=== PATIENT | female | born 1950 | race Caucasian/White ===

== ENCOUNTER → 2018-04-30 | Outpatient (CLI) | payer MEDICARE | LOC: M WUC 14:31 | DX: M25.721 Osteophyte, right elbow (principal); M25.521 Pain in right elbow | CPT/HCPCS: 73080 ==

== ENCOUNTER 2018-08-12 18:49 | Inpatient (IN) | payer MEDICARE ==
[~2018-08-12] VITALS: Ht 165.1 cm; Wt 81.0 kg
[2018-08-12] MEDS ORDERED: BENA20TA8 PO (19:05)
[2018-08-12] MEDS ORDERED: HYDR25TAB PO (19:05)
[2018-08-12] MEDS ORDERED: AMLO5TAB6 PO (19:05)
[2018-08-12] MEDS ORDERED: PSEU30TA21 PO (19:06)
[2018-08-12 19:18] LABS: BASO % 0.3 % (0.0-1.0); EOS # 0.1 10^3/uL (0.0-0.50); EOS % 0.8 % (0.0-3.0); HEMATOCRIT 45.4 % (36.0-47.0); HEMOGLOBIN 15.8 g/dl (12.0-15.5); LYMPH # 1.7 10^3/uL (1.5-4.5); LYMPH % 18.9 % (24.0-44.0); MEAN CORPUSCULAR HEMOGLOBIN 30.5 pg (27.0-33.0); MEAN CORPUSCULAR HGB CONC 34.8 g/dl (32.0-36.5); MEAN CORPUSCULAR VOLUME 87.6 fl (80.0-96.0); MONO # 0.7 10^3/uL (0.0-0.8); MONO % 7.7 % (0.0-5.0); NEUTROPHILS # 6.4 10^3/uL (1.8-7.7); NEUTROPHILS % 72.1 % (36.0-66.0); PLATELET COUNT, AUTOMATED 286 10^3/uL (150-450); RED BLOOD COUNT 5.18 10^6/uL (4.00-5.40); WHITE BLOOD COUNT 8.9 10^3/uL (4.0-10.0)
[2018-08-12 19:45] LABS: ALT/SGPT 92 U/L (12-78); BILIRUBIN,DIRECT 0.1 MG/DL (0.0-0.2); BILIRUBIN,TOTAL 0.4 MG/DL (0.2-1.0); BLOOD UREA NITROGEN 14 MG/DL (7-18); CALCIUM LEVEL 9.1 MG/DL (8.8-10.2); CARBON DIOXIDE LEVEL 27 MEQ/L (21-32); CHLORIDE LEVEL 100 MEQ/L (98-107); CPK CREATINE PHOSPHOKINASE 112 U/L (26-192); CREATININE FOR GFR 0.92 MG/DL (0.55-1.30); GLOMERULAR FILTRATION RATE > 60.0 (>45); GLUCOSE, FASTING 165 MG/DL (70-100); LIPASE 321 U/L (73-393); MB/CK RELATIVE INDEX 1.79 (< OR =4); NT-PRO BNP 276 PG/ML (<125); POTASSIUM SERUM 2.8 MEQ/L (3.5-5.1); SODIUM LEVEL 137 MEQ/L (136-145); TOTAL PROTEIN 7.4 GM/DL (6.4-8.2); TROPONIN I < 0.02 NG/ML (< 0.10)
--- NOTE | 2018-08-12 19:49 | REP ---
Sitting AP portable chest x-ray: Single view. History: Chest pain. Findings: There is linear plate-like atelectasis or fibrosis in the right base. Lung du are otherwise clear. Pleural angles are sharp. Heart size is normal. The aorta somewhat tortuous. There is a levoconvex curve in the thoracic spine. EKG monitoring electrodes overlie the chest. Impression: Plate-like atelectasis versus fibrosis right base. Otherwise no acute disease. Electronically Signed by Bubba Quiros MD 08/12/2018 09:03 P
[2018-08-12] MEDS ORDERED: POTASSIUM CHLORIDE 10 MEQ SR TABLET PO ONE ×2 (20:00→22:00)
[2018-08-12] MEDS ORDERED: KCL 10MEQ/100ML SWI (KRUN) 10 MEQ in APPROPRIATE DILUENT 1 EA IV ONE ×2 (20:00→22:15)
[2018-08-12] MEDS: METOPROLOL 5 MG/5 ML VIAL IV SCH ×3 (20:16→21:02)
[2018-08-12] MEDS ORDERED: IBUP200T45 PO (20:20)
[2018-08-12] MEDS ORDERED: GLUC500C5 PO (20:20)
[2018-08-12] MEDS ORDERED: ACET-683 PO (20:20)
[2018-08-12] MEDS ORDERED: NS 1,000 ML IV SCH (20:48)
[2018-08-12 21:14] LABS: MAGNESIUM LEVEL 1.9 MG/DL (1.8-2.4)
[2018-08-12] MEDS: METOPROLOL TART 25 MG TABLET PO SCH (21:17)
--- NOTE | 2018-08-12 21:30 | HPE ---
DATE OF ADMISSION: 08/12/2018 CHIEF COMPLAINT: Palpitations that started around 6:00 p.m. today, approximately. HISTORY OF PRESENT ILLNESS: The patient is a 68-year-old female with a significant past medical history of hypertension, who presented to the emergency room with palpitations that started around 6:00 p.m. She denies any chest pain. Denies any shortness of breath. Denies any headache, dizziness, nausea, vomiting. She denies any fevers or chills, abdominal pain, constipation, diarrhea, or urinary symptoms. Recently, she was getting over a upper respiratory infection. Her cough has improved since then. She stated that symptoms started around 6:00 p.m. She has never had any symptoms like this in the past. PAST MEDICAL HISTORY: See history of present illness. PAST SURGICAL HISTORY: 1. section. ALLERGIES: No known drug allergies. HOME MEDICATIONS: - Lisinopril - hydrochlorothiazide - Norvasc SOCIAL HISTORY: She denies tobacco, alcohol or illicit drug use. FAMILY HISTORY: Heart disease. REVIEW OF SYSTEMS: 12-point review of systems completed, all of which were negative except those listed in the history of present illness. VITAL SIGNS: Temperature 98.2, pulse 186, respirations 23, blood pressure 164/91, saturating 97% on room air. PHYSICAL EXAMINATION: GENERAL: She is well nourished and in no apparent distress. HEAD: Normocephalic, atraumatic. EYES: Extraocular movements are intact. Pupils are equal, round and reactive to light. NECK: Supple. No jugular venous pressure. LUNGS: Clear to auscultation. No crackles, wheezing, rales or rhonchi. CARDIOVASCULAR: Irregularly irregular rhythm. No murmurs, gallops or rubs. ABDOMEN: Soft, nontender, nondistended. Positive bowel sounds. No rebound or guarding. EXTREMITIES: No pitting edema or calf tenderness. SKIN: Intact. No rashes, lesions or breakdown. NEUROLOGIC: Alert and oriented times three. No focal deficits appreciated. LABORATORIES: On admission to the emergency room: White count 8, hemoglobin and hematocrit 15/45, platelet count 286. Chemistry: BUN and creatinine of 14 and 0.92, potassium 2.8, TSH 1.53. Initial troponin is negative. IMAGING: Chest x-ray shows plate-like atelectasis versus fibrosis at the right base. ASSESSMENT AND PLAN: 1. New onset atrial fibrillation within 48 hours of onset. Lopressor IV every 5 minutes times five given in the emergency room in an attempt to control the heart rate. We will start Lopressor 25 mg every 8 hours orally, goal heart rate of 60 to 110. If heart rate is not in goal, we will start the patient on Cardizem drip. CHADs-VASc of 3. We will start Lovenox therapeutically. We will cycle the troponin. We will get serial electrocardiogram (EKG). We will get echocardiogram. We will check UA for any signs of infection. We will correct all electrolyte abnormalities. We will check magnesium. 50 mEq of potassium was given in the emergency room. We will give an additional 50 mEq and recheck. We will get an echocardiogram. Being that the patient is only a few hours of atrial fibrillation, cardiology consult can be obtained in the morning if the patient does not cardiovert. She can be a candidate to attempt to restore sinus rhythm. 2. History of hypertension. We will hold her blood pressure medications for now as she is receiving IV Lopressor and blood pressure is in the systolic of 100s. 3. Supportive. Deep vein thrombosis (DVT) prophylaxis with Lovenox. Gastrointestinal prophylaxis is not indicated. Diet is cardiac.
[2018-08-13 00:15] VITALS: BP 119/69
[2018-08-13] MEDS: ENOXAPARIN 80 MG/0.8 ML SYRINGE (J1650) SC SCH ×2 (00:21→12:51)
[2018-08-13 00:39] LABS: BLOOD UREA NITROGEN 11 MG/DL (7-18); CALCIUM LEVEL 8.2 MG/DL (8.8-10.2); CARBON DIOXIDE LEVEL 26 MEQ/L (21-32); CHLORIDE LEVEL 107 MEQ/L (98-107); CREATININE FOR GFR 0.74 MG/DL (0.55-1.30); GLOMERULAR FILTRATION RATE > 60.0 (>45); GLUCOSE, FASTING 123 MG/DL (70-100); POTASSIUM SERUM 3.6 MEQ/L (3.5-5.1); SODIUM LEVEL 140 MEQ/L (136-145); TROPONIN I 0.02 NG/ML (< 0.10)
[2018-08-13 04:00] VITALS: BP 111/79
[2018-08-13 05:27] LABS: HEMATOCRIT 41.5 % (36.0-47.0); MEAN CORPUSCULAR HEMOGLOBIN 30.2 pg (27.0-33.0); MEAN CORPUSCULAR HGB CONC 33.7 g/dl (32.0-36.5); MEAN CORPUSCULAR VOLUME 89.6 fl (80.0-96.0); PLATELET COUNT, AUTOMATED 243 10^3/uL (150-450); RED BLOOD COUNT 4.63 10^6/uL (4.00-5.40); WHITE BLOOD COUNT 6.4 10^3/uL (4.0-10.0)
[2018-08-13 05:58] LABS: BLOOD UREA NITROGEN 8 MG/DL (7-18); CALCIUM LEVEL 8.1 MG/DL (8.8-10.2); CARBON DIOXIDE LEVEL 27 MEQ/L (21-32); CHLORIDE LEVEL 106 MEQ/L (98-107); CREATININE FOR GFR 0.67 MG/DL (0.55-1.30); GLOMERULAR FILTRATION RATE > 60.0 (>45); GLUCOSE, FASTING 91 MG/DL (70-100); SODIUM LEVEL 138 MEQ/L (136-145); TROPONIN I 0.02 NG/ML (< 0.10)
[2018-08-13] MEDS: METOPROLOL TART 25 MG TABLET PO SCH ×3 (06:08→22:14)
[2018-08-13 07:49] VITALS: BP 118/71
[2018-08-13 08:30] LABS: ALT/SGPT 66 U/L (12-78); BILIRUBIN,DIRECT 0.1 MG/DL (0.0-0.2); BILIRUBIN,TOTAL 0.3 MG/DL (0.2-1.0); TOTAL PROTEIN 6.4 GM/DL (6.4-8.2)
[2018-08-13] MEDS ORDERED: SLF 3 ML SYR IV PRN (10:45)
[2018-08-13 12:00] VITALS: BP 132/70
[2018-08-13] MEDS ORDERED: ELIQ5TAB PO (12:58)
[2018-08-13] MEDS: SLF 3 ML SYR IV SCH ×2 (14:00→22:00)
[2018-08-13] MEDS ORDERED: ACETAMINOPHEN 500 MG TAB PO PRN (14:45)
[2018-08-13] MEDS ORDERED: HumaLOG INSULIN (NovoLOG) PER UNIT SC ONE (15:15)
--- NOTE | 2018-08-13 15:18 | ECGEPIP ---
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
[2018-08-13 16:00] VITALS: BP 120/76
--- NOTE | 2018-08-13 17:13 | IPNPDOC ---
Subjective Date Seen The patient was seen on 08/13/18. Subjective Chief Complaint/HPI Patient seen and examined at bedside. She was noted to convert back into normal sinus rhythm yesterday evening in the ER prior to coming to the telemetry floor. She has denied any complaints of chest pain, palpitations, shortness of breath at this time. She does however note that she has had moments of palpitations in the past, which only lasted several moments. Objective Physical Examination General Exam: Positive: Alert, Cooperative, No Acute Distress ENT Exam: Positive: Atraumatic, Mucous membr. moist/pink Neck Exam: Negative: JVD Chest Exam: Positive: Clear to auscultation, Normal air movement Heart Exam: Positive: Rate Normal, Normal S1, Normal S2 Telemetry: Positive: Sinus Abdomen Exam: Positive: Soft; Negative: Tenderness Extremity Exam: Negative: Tenderness, Swelling Psych Exam: Positive: Oriented x 3 Assessment /Plan Plan/VTE VTE Prophylaxis Ordered?: Yes Plan New onset atrial fibrillation Patient has converted back into normal sinus rhythm yesterday evening CHADS-VASC Score of 3 Given risk factors, AC was discussed at length with the patient. She has verbalized understanding of the risks, benefits, and alternative options in regards to anticoagulation therapy. At this time, the patient is amenable to starting anticoagulation therapy. Patricio has been sent to the patient's pharmacy, Metoprolol for rate control 2D ECHO pending We will cont to monitor on telemetry History of hypertension Cont meds as ordered Deep vein thrombosis (DVT) prophylaxis Lovenox SC Dispo--anticipate D/C in 24-48hrs pending pending clinical improvement, 2D ECHO. VS, I&O, 24H, [place] Vital Signs/I&O Vital Signs Date Time Temp Pulse Resp B/P (MAP) Pulse Ox O2 Delivery O2 Flow Rate FiO2 08/13/18 16:00 100.8 89 20 120/76 (91) 92 08/12/18 23:30 Room Air I&O- Last 24 Hours up to 6 AM 08/13/18 06:00 Intake Total 1055 ml Balance 1055 ml Laboratory Data 24H LABS Laboratory Tests 2 08/12/18 19:02: Immature Granulocyte % (Auto) 0.2, White Blood Count 8.9, Red Blood Count 5.18, Hemoglobin 15.8H, Hematocrit 45.4, Mean Corpuscular Volume 87.6, Mean Corpuscular Hemoglobin 30.5, Mean Corpuscular Hemoglobin Concent 34.8, Red Cell Distribution Width 12.2, Platelet Count 286, Neutrophils (%) (Auto) 72.1H, Lymphocytes (%) (Auto) 18.9L, Monocytes (%) (Auto) 7.7H, Eosinophils (%) (Auto) 0.8, Basophils (%) (Auto) 0.3, Neutrophils # (Auto) 6.4, Lymphocytes # (Auto) 1.7, Monocytes # (Auto) 0.7, Eosinophils # (Auto) 0.1, Basophils # (Auto) 0.0, Nucleated Red Blood Cells % (auto) 0.0, Anion Gap 10, Glomerular Filtration Rate > 60.0, Calcium Level 9.1, Magnesium Level 1.9, Aspartate Amino Transf (AST/SGOT) 53H, Alanine Aminotransferase (ALT/SGPT) 92H, Alkaline Phosphatase 15 1H, Total Bilirubin 0.4, Direct Bilirubin 0.1, Total Creatine Kinase 112, Creatine Kinase MB 2.0, Creatine Kinase MB Relative Index 1.79, Troponin I < 0.02, TP-Buc-N-Type Natriuretic Peptide 276H, Total Protein 7.4, Albumin 4.0, Albumin/Globulin Ratio 1.18, Lipase 321, Thyroid Stimulating Hormone (TSH) 1.530 08/13/18 00:00: Anion Gap 7L, Glomerular Filtration Rate > 60.0, Calcium Level 8.2L, Troponin I 0.02, Blood Urea Nitrogen 11, Creatinine 0.74, Sodium Level 140, Potassium Level 3.6#, Chloride Level 107, Carbon Dioxide Level 26 08/13/18 05:05: Nucleated Red Blood Cells % (auto) 0.0, Anion Gap 5L, Glomerular Filtration Rate > 60.0, Calcium Level 8.1L, Aspartate Amino Transf (AST/SGOT) 35, Alanine Aminotransferase (ALT/SGPT) 66, Alkaline Phosphatase 110, Total Bilirubin 0.3, Direct Bilirubin 0.1, Troponin I 0.02, Total Protein 6.4, Albumin 3.0#L, Albumin/Globulin Ratio 0.88L CBC/BMP Laboratory Tests 08/12/18 19:02 Red Blood Count 5.18, Mean Corpuscular Volume 87.6, Mean Corpuscular Hemoglobin 30.5, Mean Corpuscular Hemoglobin Concent 34.8, Red Cell Distribution Width 12.2, Neutrophils (%) (Auto) 72.1 H, Lymphocytes (%) (Auto) 18.9 L, Monocytes (%) (Auto) 7.7 H, Eosinophils (%) (Auto) 0.8, Basophils (%) (Auto) 0.3, N eutrophils # (Auto) 6.4, Lymphocytes # (Auto) 1.7, Monocytes # (Auto) 0.7, Eosinophils # (Auto) 0.1, Basophils # (Auto) 0.0 08/13/18 00:00 Calcium Level 8.2 L 08/13/18 05:05 Red Blood Count 4.63, Mean Corpuscular Volume 89.6, Mean Corpuscular Hemoglobin 30.2, Mean Corpuscular Hemoglobin Concent 33.7, Red Cell Distribution Width 12.2 WILFREDO GIVENS MD Aug 13, 2018 17:13
[2018-08-13 20:00] VITALS: BP_SYST 120; BP_SYST 130; BP_DIAS 75; BP_DIAS 78
--- NOTE | 2018-08-13 20:57 | ECHO ---
DATE OF PROCEDURE: 08/13/2018 REFERRING PHYSICIAN: Betito Sampson MD INDICATION: Abnormal ECG. HEIGHT: 165 cm WEIGHT: 78 kg DIMENSIONS: IVS: 1.0 LV: 4.4 LVPW: 1.0 LA: 3.1 Aorta: 3.0 IVC: 1.4 Mitral E wave velocity: 81, A wave: 61 E prime septal; 8.2, E prime lateral: 11.9 FINDINGS The study is of fair technical quality. The patient is in sinus rhythm. Left ventricle is of normal size and systolic function with estimated left ventricular ejection fraction (LVEF) 60-65%. No segmental wall motion abnormalities are appreciated based on fair views. Right ventricle appears normal. Both atria appear normal. Aortic valve has three leaflets. It is minimally sclerotic but mobility is preserved. There are also mild degenerative abnormalities of mitral valve. Tricuspid valve appears normal. Pulmonic valve was not well seen. No pericardial effusion is noted. Inferior vena cava is normal size. Aortic root and aortic arch appear normal. Abdominal aorta was not visualized. Doppler interrogation reveals no aortic insufficiency and no significant stenosis. There is mild mitral and tricuspid insufficiency. Calculated pulmonary artery pressure is on upper limits of normal values. Mitral inflow pattern and tissue Doppler imaging of mitral annulus reveal probably normal diastolic function even though septal tissue Doppler velocity of mitral annulus is mildly reduced. CONCLUSION 1. Study is of fair technical quality. 2. Normal left ventricle (LV) size and systolic function, likely normal diastolic function. 3. Aortic sclerosis but no stenosis or insufficiency. 4. Mild mitral and tricuspid insufficiency. 5. Normal central venous pressure and probably normal pulmonary artery pressure. COMMENT Subacute bacterial endocarditis (SBE) prophylaxis is not recommended. The study does not provide explanation for abnormal ECG.
[2018-08-14] VITALS: BP 130/75
[2018-08-14] MEDS: ENOXAPARIN 80 MG/0.8 ML SYRINGE (J1650) SC SCH (00:55)
--- NOTE | 2018-08-14 00:55 | ECGEPIP ---
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 PATIENT THEN WAS IN ATRIAL FIBRILLATION WITH A RAPID VENTRICULAR RATE Electronically Signed On 08-14-2018 0:55:29 EDT by Abner Dixon
[2018-08-14 04:00] VITALS: BP 106/58
[2018-08-14 05:14] LABS: HEMATOCRIT 35.9 % (36.0-47.0); HEMOGLOBIN 12.4 g/dl (12.0-15.5); MEAN CORPUSCULAR HEMOGLOBIN 30.7 pg (27.0-33.0); MEAN CORPUSCULAR HGB CONC 34.5 g/dl (32.0-36.5); MEAN CORPUSCULAR VOLUME 88.9 fl (80.0-96.0); PLATELET COUNT, AUTOMATED 205 10^3/uL (150-450); RED BLOOD COUNT 4.04 10^6/uL (4.00-5.40); WHITE BLOOD COUNT 8.1 10^3/uL (4.0-10.0)
[2018-08-14 05:35] LABS: BLOOD UREA NITROGEN 10 MG/DL (7-18); CALCIUM LEVEL 8.1 MG/DL (8.8-10.2); CARBON DIOXIDE LEVEL 26 MEQ/L (21-32); CHLORIDE LEVEL 105 MEQ/L (98-107); CREATININE FOR GFR 0.66 MG/DL (0.55-1.30); GLOMERULAR FILTRATION RATE > 60.0 (>45); GLUCOSE, FASTING 89 MG/DL (70-100); POTASSIUM SERUM 3.3 MEQ/L (3.5-5.1); SODIUM LEVEL 138 MEQ/L (136-145)
[2018-08-14] MEDS: SLF 3 ML SYR IV SCH (06:00)
[2018-08-14 06:02] VITALS: BP 138/82
[2018-08-14] MEDS: METOPROLOL TART 25 MG TABLET PO SCH (06:02)
[2018-08-14 08:00] VITALS: BP_SYST 117; BP_SYST 168; BP_DIAS 80; BP_DIAS 82
[2018-08-14] MEDS ORDERED: METO1TAB87 PO (10:41)
[2018-08-14] MEDS ORDERED: POTASSIUM CHLORIDE 10 MEQ SR TABLET PO ONE (10:45)
--- NOTE | 2018-08-14 15:05 | DS.PDOC ---
Discharge Summary General Date of Admission Aug 12, 2018 at 20:48 Date of Discharge 08/14/18 Discharge Summary PROCEDURES PERFORMED DURING STAY: None. ADMITTING/DISCHARGE DIAGNOSES: New onset atrial fibrillation Hypertension COMPLICATIONS/CHIEF COMPLAINT: Atrial Fibrillation With Rapid Ventricular Respo ns. HISTORY OF PRESENT ILLNESS: . 68-year-old female with past medical history of hypertension presented to the ER with a chief complaint of palpitations. The patient denied any complaints of chest pain, shortness of breath, abdominal pain, or any nausea/vomiting/diarrhea. The patient did state that she recently had an upper respiratory infection but otherwise denies any other acute complaints. In the ER, the patient was found to be in new onset atrial fibrillation with a rapid ventricular rate. She was admitted to the hospitalist service for further evaluation and management. During hospitalization, the patient's rhythm converted to normal sinus in the ER prior to being admitted to the telemetry unit. She remained in normal sinus rhythm thereafter. A 2-D echocardiogram was obtained and the results are listed below. The patient's CHADs-VASc score was calculated to be 3. Risks, benefits, and alternative options were discussed at length with the patient. The patient has verbalized understanding of the same and has opted to start anticoagulation. A script for Eliquis has been sent to her pharmacy. The patient has also been started on metoprolol 25 mg twice a day. At this time, the patient states that she is feeling much better and is eager to return home. I've advised the patient to follow-up with her primary care physician within 7 days. She is also to follow up with cardiology as an outpatient for further management. Lastly, the patient has been advised to return to the ER for any acute emergencies. DISCHARGE MEDICATIONS: Please see below. ALLERGIES: Please see below. PHYSICAL EXAMINATION ON DISCHARGE: VITAL SIGNS: Please see below. General Exam: Positive: Alert, Cooperative, No Acute Distress ENT Exam: Positive: Atraumatic, Mucous membr. moist/pink Neck Exam: Negative: JVD Chest Exam: Positive: Clear to auscultation, Normal air movement Heart Exam: Positive: Rate Normal, Normal S1, Normal S2 Telemetry: Positive: Sinus Abdomen Exam: Positive: Soft; Negative: Tenderness Extremity Exam: Negative: Tenderness, Swelling Psych Exam: Positive: Oriented x 3 LABORATORY DATA: Please see below. IMAGING: DATE OF PROCEDURE: 08/13/2018 REFERRING PHYSICIAN: Betito Sampson MD INDICATION: Abnormal ECG. HEIGHT: 165 cm WEIGHT: 78 kg DIMENSIONS: IVS: 1.0 LV: 4.4 LVPW: 1.0 LA: 3.1 Aorta: 3.0 IVC: 1.4 Mitral E wave velocity: 81, A wave: 61 E prime septal; 8.2, E prime lateral: 11.9 FINDINGS The study is of fair technical quality. The patient is in sinus rhythm. Left ventricle is of normal size and systolic function with estimated left ventricular ejection fraction (LVEF) 60-65%. No segmental wall motion abnormalities are appreciated based on fair views. Right ventricle appears normal. Both atria appear normal. Aortic valve has three leaflets. It is minimally sclerotic but mobility is preserved. There are also mild degenerative abnormalities of mitral valve. Tricuspid valve appears normal. Pulmonic valve was not well seen. No pericardial effusion is noted. Inferior vena cava is normal size. Aortic root and aortic arch appear normal. Abdominal aorta was not visualized. Doppler interrogation reveals no aortic insufficiency and no significant stenosis. There is mild mitral and tricuspid insufficiency. Calculated pulmonary artery pressure is on upper limits of normal values. Mitral inflow pattern and tissue Doppler imaging of mitral annulus reveal probably normal diastolic function even though septal tissue Doppler velocity of mitral annulus is mildly reduced. CONCLUSION 1. Study is of fair technical quality. 2. Normal left ventricle (LV) size and systolic function, likely normal diastolic function. 3. Aortic sclerosis but no stenosis or insufficiency. 4. Mild mitral and tricuspid insufficiency. 5. Normal central venous pressure and probably normal pulmonary artery pressure. Sitting AP portable chest x-ray: Single view. History: Chest pain. Findings: There is linear plate-like atelectasis or fibrosis in the right base. Lung du are otherwise clear. Pleural angles are sharp. Heart size is normal. The aorta somewhat tortuous. There is a levoconvex curve in the thoracic spine. EKG monitoring electrodes overlie the chest. Impression: Plate-like atelectasis versus fibrosis right base. Otherwise no acute disease. PROGNOSIS: Fair ACTIVITY: As tolerated. DIET: 2 g low sodium diet DISCHARGE PLAN: DISPOSITION: 01 Home, Self-Care. DISCHARGE INSTRUCTIONS: I've advised the patient to follow-up with her primary care physician within 7 days. She is also to follow up with cardiology as an outpatient for further management. Lastly, the patient has been advised to return to the ER for any acute emergencies. DISCHARGE CONDITION: Stable. TIME SPENT ON DISCHARGE: Greater than 30 minutes. Vital Signs/I&Os Vital Signs Date Time Temp Pulse Resp B/P (MAP) Pulse Ox O2 Delivery O2 Flow Rate FiO2 08/14/18 08:00 08/12/18 23:30 Room Air I&O- Last 24 Hours up to 6 AM 08/14/18 06:00 Intake Total 1440 ml Output Total 300 ml Balance 1140 ml Laboratory Data Labs 24H Laboratory Tests 2 08/14/18 05:03: Nucleated Red Blood Cells % (auto) 0.0, Anion Gap 7L, Glomerular Filtration Rate > 60.0, Blood Urea Nitrogen 10, Creatinine 0.66, Sodium Level 138, Potassium Level 3.3L, Chloride Level 105, Carbon Dioxide Level 26, Calcium Level 8.1L CBC/BMP Laboratory Tests 08/14/18 05:03 Red Blood Count 4.04, Mean Corpuscular Volume 88.9, Mean Corpuscular Hemoglobin 30.7, Mean Corpuscular Hemoglobin Concent 34.5, Red Cell Distribution Width 12.2, Calcium Level 8.1 L Discharge Medications Scheduled Amlodipine Besylate (Amlodipine Besylate) 5 Mg Tab, 5 MG PO DAILY, (Reported) Apixaban Base (Eliquis) 5 Mg Tab, 5 MG PO ASDIRECTED 10 MG (2 TABS) TWICE PER DAY FOR 7 DAYS THEN 5 MG (1 TAB) TWICE PER DAY Benazepril HCl (Benazepril HCl) 20 Mg Tab, 20 MG PO DAILY, (Reported) Glucosamine Sulfate (Glucosamine) 500 Mg Cap, 500 MG PO DAILY, (Reported) Hydrochlorothiazide (Hydrochlorothiazide) 25 Mg Tab, 25 MG PO DAILY, (Reported) Metoprolol Tartrate (Metoprolol Tartrate) 25 Mg Tab, 1 TAB PO BID Scheduled PRN Acetaminophen (Acetaminophen Extra Stren) 500 Mg Tab, 500 MG PO Q6H PRN for PAIN, (Reported) Pseudoephedrine (Pseudoephedrine HCl) 30 Mg Tab, 30 MG PO Q4H PRN for COLD SYMPTOMS, (Reported) Allergies Coded Allergies: No Known Drug Allergy (Verified Allergy, Unknown, 08/12/18) WILFREDO GIVENS MD Aug 14, 2018 15:05
== END 2018-08-14 12:32 | disposition home or self-care (01) | DRG 310 ==
LOC: M ED 18:49 → M ED INP 20:48 → M PCU 08-13 00:03
PROVIDERS: ADMIT Internal Medicine; ATTEND Internal Medicine
DX: I48.91 Unspecified atrial fibrillation (principal); I10 Essential (primary) hypertension; Z79.899 Other long term (current) drug therapy

== ENCOUNTER → 2021-07-01 | Outpatient (CLI) | payer MEDICARE ==
[~2021-07-01] MED LIST: ACET-683 PO; AMLO1TAB24 PO; BENA-8 PO; ELIQ5TAB PO; GLUC500C5 PO; HYDR-3490 PO; IBUP200T46 PO; METO1TAB87 PO; PSEU30TA21 PO
[2021-07-01 08:03] LABS: HEMOGLOBIN 14.9 g/dl (12.0-15.5); MEAN CORPUSCULAR HEMOGLOBIN 31.1 pg (27.0-33.0); MEAN CORPUSCULAR HGB CONC 33.9 g/dl (32.0-36.5); MEAN CORPUSCULAR VOLUME 91.9 fl (80.0-96.0); PLATELET COUNT, AUTOMATED 344 10^3/uL (150-450); RED BLOOD COUNT 4.79 10^6/uL (4.00-5.40); WHITE BLOOD COUNT 4.8 10^3/uL (4.0-10.0)
[2021-07-01 08:24] LABS: BLOOD UREA NITROGEN 14 MG/DL (7-18); CALCIUM LEVEL 9.2 MG/DL (8.8-10.2); CARBON DIOXIDE LEVEL 31 MEQ/L (21-32); CHLORIDE LEVEL 103 MEQ/L (98-107); CREATININE FOR GFR 0.91 MG/DL (0.55-1.30); GLOMERULAR FILTRATION RATE > 60.0 (>39); GLUCOSE, FASTING 101 MG/DL (70-100); POTASSIUM SERUM 3.7 MEQ/L (3.5-5.1); SODIUM LEVEL 140 MEQ/L (136-145)
== END ==
LOC: M LAB 07:39
PROVIDERS: ATTEND Nurse Practitioner Family
DX: I48.0 Paroxysmal atrial fibrillation (principal); I10 Essential (primary) hypertension

== ENCOUNTER → 2022-07-26 | Outpatient (CLI) | payer MEDICARE ==
[2022-07-26 07:26] LABS: HEMOGLOBIN 14.8 g/dl (12.0-15.5); MEAN CORPUSCULAR HEMOGLOBIN 30.5 pg (27.0-33.0); MEAN CORPUSCULAR HGB CONC 32.9 g/dl (32.0-36.5); MEAN CORPUSCULAR VOLUME 92.6 fl (80.0-96.0); PLATELET COUNT, AUTOMATED 348 10^3/uL (150-450); RED BLOOD COUNT 4.86 10^6/uL (4.00-5.40); WHITE BLOOD COUNT 6.5 10^3/uL (4.0-10.0)
[2022-07-26 07:54] LABS: BLOOD UREA NITROGEN 15 MG/DL (9-23); CALCIUM LEVEL 9.2 MG/DL (8.3-10.6); CARBON DIOXIDE LEVEL 31 MMOL/L (20-31); CHLORIDE LEVEL 103 MMOL/L (98-107); CHOLESTEROL LEVEL 202 MG/DL (<200); CHOLESTEROL RISK RATIO 2.91 (<5); CREATININE FOR GFR 0.81 MG/DL (0.55-1.30); GLOMERULAR FILTRATION RATE > 60.0 (>39); GLUCOSE, FASTING 86 MG/DL (74-106); HDL CHOLESTEROL 69.2 MG/DL (>40); LDL CHOLESTEROL 114.6 MG/DL (<100); NON-HDL-C 133 MG/DL; POTASSIUM SERUM 4.1 MMOL/L (3.5-5.1); SODIUM LEVEL 140 MMOL/L (136-145); TRIGLYCERIDES LEVEL 91 MG/DL (<150)
== END ==
LOC: M LAB 06:44
PROVIDERS: ATTEND Nurse Practitioner Family
DX: I48.91 Unspecified atrial fibrillation (principal); E78.00 Pure hypercholesterolemia, unspecified

== ENCOUNTER 2023-06-02 20:30 | Emergency (ER) | payer MEDICARE ==
[~2023-06-02] VITALS: Ht 162.6 cm; Wt 78.6 kg
[2023-06-02] MEDS ORDERED: LISI20TA37 (20:40)
[2023-06-02] MEDS ORDERED: METOPROLOL 5 MG/5 ML VIAL IV PRN (21:05)
[2023-06-02 21:36] LABS: BASO % 0.4 % (0.0-1.0); EOS # 0.4 10^3/uL (0.0-0.5); HEMATOCRIT 42.4 % (36.0-47.0); HEMOGLOBIN 14.3 g/dl (12.0-15.5); LYMPH # 2.7 10^3/uL (1.5-5.0); MEAN CORPUSCULAR HEMOGLOBIN 32.4 pg (27.0-33.0); MEAN CORPUSCULAR HGB CONC 33.7 g/dl (32.0-36.5); MEAN CORPUSCULAR VOLUME 96.1 fl (80.0-96.0); MONO # 0.7 10^3/uL (0.0-0.8); MONO % 10.2 % (2.0-8.0); NEUTROPHILS # 3.3 10^3/uL (1.5-8.5); NEUTROPHILS % 46.3 % (36.0-66.0); PLATELET COUNT, AUTOMATED 342 10^3/uL (150-450); RED BLOOD COUNT 4.41 10^6/uL (4.00-5.40)
[2023-06-02 21:58] LABS: BLOOD UREA NITROGEN 26 MG/DL (9-23); CARBON DIOXIDE LEVEL 27 MMOL/L (20-31); CHLORIDE LEVEL 106 MMOL/L (98-107); CREATININE FOR GFR 0.83 MG/DL (0.55-1.30); GLOMERULAR FILTRATION RATE > 60.0 (>39); GLUCOSE, FASTING 109 MG/DL (74-106); POTASSIUM SERUM 3.5 MMOL/L (3.5-5.1); SODIUM LEVEL 140 MMOL/L (136-145)
[2023-06-02 22:00] LABS: THYROID STIMULATING HORMONE 2.821 uIU/ML (0.55-4.78)
[2023-06-02 22:27] LABS: MAGNESIUM LEVEL 1.9 MG/DL (1.8-2.4)
[2023-06-02] MEDS ORDERED: METOPROLOL TART 25 MG TABLET PO ONE (22:35)
[2023-06-02] MEDS ORDERED: METO50TA7 PO (22:50)
[2023-06-02] MEDS ORDERED: METAL LOCK LOOP XX ONE (23:17)
[2023-06-02 23:25] VITALS: BP 135/66
[2023-06-02 23:33] VITALS: BP 135/66; TEMP 98.2; O2SAT 97
== END 2023-06-02 23:35 | disposition home or self-care (01) ==
LOC: M ED 20:30
DX: R00.2 Palpitations (principal); I48.91 Unspecified atrial fibrillation; I45.81 Long QT syndrome; I10 Essential (primary) hypertension; Z86.79 Personal history of other diseases of the circulatory system; Z79.01 Long term (current) use of anticoagulants; Z79.811 Long term (current) use of aromatase inhibitors; Z79.899 Other long term (current) drug therapy

== ENCOUNTER → 2023-07-28 | Outpatient (CLI) | payer MEDICARE ==
[~2023-07-28] MED LIST changes: +LISI20TA37; +METO50TA7 PO
[2023-07-28 10:52] LABS: CHOLESTEROL RISK RATIO 2.11 (<5); HDL CHOLESTEROL 62.5 MG/DL (>40); LDL CHOLESTEROL 49.1 MG/DL (<100); NON-HDL-C 69.5 MG/DL
== END ==
LOC: M LAB 08:16
PROVIDERS: ATTEND Nurse Practitioner Family
DX: E78.49 Other hyperlipidemia (principal)

== ENCOUNTER 2025-01-23 02:43 | Emergency (ER) | payer MEDICARE ==
[~2025-01-23] VITALS: Ht 160 cm; Wt 77.3 kg
[2025-01-23 02:49] VITALS: TEMP 96.3
[2025-01-23 03:15] LABS: PLATELET COUNT, AUTOMATED 323 10^3/uL (150-450)
[2025-01-23] MEDS: METOPROLOL 5 MG/5 ML VIAL IV SCH (03:18)
[2025-01-23 03:53] VITALS: BP 126/88
[2025-01-23] MEDS: METOPROLOL TART 25 MG TABLET PO ONE (03:53)
[2025-01-23] MEDS: NS (Normal Saline) 0.9% 1,000 ML IV ONE (03:54)
[2025-01-23 04:11] LABS: CALCIUM LEVEL 9.4 MG/DL (8.3-10.6); CARBON DIOXIDE LEVEL 25.0 MMOL/L (20-31); CHLORIDE LEVEL 103.0 MMOL/L (98-107); CREATININE FOR GFR 1.01 MG/DL (0.55-1.30); GLOMERULAR FILTRATION RATE 58.8 (>39); MAGNESIUM LEVEL 1.8 MG/DL (1.8-2.4); POTASSIUM SERUM 3.9 MMOL/L (3.5-5.1); SODIUM LEVEL 141.0 MMOL/L (136-145)
[2025-01-23] MEDS: MAG SULF 1GM/100ML (MAG RUN) 1 GM in IV 1 EA IV ONE (04:50)
[2025-01-23 05:34] VITALS: BP 121/70; O2SAT 96
== END 2025-01-23 05:41 | disposition home or self-care (01) ==
LOC: M ED 02:43
DX: I48.91 Unspecified atrial fibrillation (principal); E83.42 Hypomagnesemia; E86.0 Dehydration; I10 Essential (primary) hypertension; I45.81 Long QT syndrome; Z79.1 Long term (current) use of non-steroidal anti-inflammatories (NSAID); Z79.01 Long term (current) use of anticoagulants; Z79.899 Other long term (current) drug therapy
CPT/HCPCS: 80048; 83735; 85027; 93005; 96361; 96365; 99284; J0616; J3475